=== PATIENT | male | born 1970 | race Caucasian/White ===

== ENCOUNTER 2019-04-26 08:00 | Outpatient (CLI) | payer OTHER | END 2019-05-16 | LOC: FIMAGING 08:00 ==

== ENCOUNTER → 2019-05-03 | Outpatient (CLI) | payer OTHER | LOC: FIMAGING 15:54 ==

== ENCOUNTER → 2019-05-16 | Outpatient (CLI) | payer OTHER | LOC: FIMAGING 06:30 ==

== ENCOUNTER 2019-05-20 07:36 | Day surgery (SDC) | payer OTHER | END 2019-05-20 14:59 | disposition home or self-care (01) | LOC: FIMAGING 07:36 ==